=== PATIENT | female | born 1970 | race Caucasian/White ===

== ENCOUNTER 2021-02-04 08:36 | Emergency (ER) | payer OTHER ==
[~2021-02-04] VITALS: Ht 154.9 cm; Wt 79.0 kg
[2021-02-04] MEDS ORDERED: FENTANYL CITRATE/PF 50MCG/ML 2ML VIAL IV ONE ×3 (09:15→11:15)
[2021-02-04] MEDS ORDERED: PROPOFOL 200MG/20ML VIAL IV NR (11:15)
[2021-02-04] MEDS ORDERED: SODIUM CHLORIDE 0.9% 1,000 ML IV NR (11:15)
[2021-02-04] MEDS ORDERED: LIDOCAINE HCL/EPINEPHRINE 1%-EPI 1:100,000 20 ML VIAL INFIL NR (11:15)
[2021-02-04] MEDS ORDERED: ONDANSETRON HCL 4MG/2ML INJ IV NR (11:15)
[2021-02-04 12:05] LABS: BASOPHILS % 0.1 % (0.0-2.0); EOSINOPHILS % 0.1 % (0.0-5.0); HEMATOCRIT. 40.9 % (36.0-48.0); HEMOGLOBIN. 13.2 g/dL (12.0-16.0); LYMPHOCYTES % 7.3 % (20.0-50.0); MEAN CORPUSCULAR HEMOGLOBIN 29.4 pg (28.0-32.0); MEAN CORPUSCULAR VOLUME 91.5 fL (81.0-99.0); MEAN PLATELET VOLUME 9.3 fl (7.4-10.4); MONOCYTES % 4.4 % (2.0-8.0); NEUTROPHILS % 88.1 % (40.0-76.0); PLATELET 296 x1000/uL (130-400); RED BLOOD CELL COUNT 4.47 mill/uL (4.2-5.4); RED CELL DISTRIBUTION WIDTH 13.6 % (11.6-14.6)
[2021-02-04 12:12] LABS: CHLORIDE 109 mEq/L (98-107)
[2021-02-04] MEDS ORDERED: IOHEXOL-300 100 ML BOTTLE ONE (13:14)
[2021-02-04] MEDS ORDERED: HYDROMORPHONE HCL/PF 2MG/ML CPJ IV ONE (14:15)
[2021-02-04] MEDS: HYDROMORPHONE HCL/PF 2MG/ML CPJ IV ONE ×2 (17:24→17:29)
[2021-02-04 20:36] VITALS: BP 139/85
== END 2021-02-04 20:58 | disposition short-term general hospital (02) ==
LOC: ER 08:36
DX: S52.571A Other intraarticular fracture of lower end of right radius, initial encounter for closed fracture (principal); S80.12XA Contusion of left lower leg, initial encounter; S80.11XA Contusion of right lower leg, initial encounter; E11.9 Type 2 diabetes mellitus without complications; Z87.19 Personal history of other diseases of the digestive system; V43.52XA Car driver injured in collision with other type car in traffic accident, initial encounter; Y93.89 Activity, other specified; Y92.488 Other paved roadways as the place of occurrence of the external cause
CPT/HCPCS: 25605; 36415; 71045; 71260; 72125; 73070; 73090; 73100; 74177; 80053; 82962; 84484; 85025; 87426; 93005; 96374; 96375; 96376; 99152; 99285; J1170; J2405; J2704; J3010; J3490; Q9967